=== PATIENT | female | born 1950 | race American Indian/Alaskan Native ===

== ENCOUNTER 2018-12-27 15:51 | Inpatient (IN) | payer MEDICARE ==
--- NOTE | 2018-12-27 19:24 | Emergency Department Report ---
Blank Doc - Documentation Documentation: 68-year-old -Beninese female comes in for left knee swollen redness ning bility to bear weight since Monday. Past medical history of hypertension diabetes with insulin. Labs will be ordered patient be evaluated in the main ER
[2018-12-27 21:04] LABS: BUN/Creatinine Ratio 15; Blood Urea Nitrogen 12 mg/dL (7-17); Calcium 10.8 mg/dL (8.4-10.2); Hemolysis Index 166
[2018-12-27 21:06] LABS: Alanine Aminotransferase 11 units/L (7-56)
[2018-12-27] MEDS ORDERED: DILAUDID IV ONE (21:14)
[2018-12-27] MEDS ORDERED: NACL 0.9% 500 ML 500 ML IV ONE (21:14)
[2018-12-27] MEDS ORDERED: GENTAMICIN 80 MG in NACL 0.9% 100 ML IV ONE (21:14)
[2018-12-27] MEDS ORDERED: VANCOMYCIN 1,500 MG in NACL 0.9% 500 ML 500 ML IV ONE (21:14)
--- NOTE | 2018-12-27 21:18 | Emergency Department Report ---
ED General Adult HPI - General Chief complaint: Extremity Injury, Lower Stated complaint: LT KNEE PAIN Time Seen by Provider: 12/27/18 18:57 Source: patient, family, EMS, RN notes reviewed, old records reviewed Mode of arrival: Wheelchair Limitations: Physical Limitation, Other (patient delirious. Patient is a poor historian. Patient is demented.) - History of Present Illness Initial comments: This is a 68-year-old female. The patient is not known to this provider previously. She typically follows at [facility]. As per her sister, Ms. Khushbu Valencia; [phone], the patient has a history of dementia, possible cognitive delay, arthritis, gout, DVT, and takes xarelto. She does not know when the patient last took her anticoagulation. It may have been today, and they've been yesterday, or the day before. The sister is not certain. The sister brings the patient to the emergency room with a complaint of weakness, history of chest pain, history of wheezing, history of fever at home to 102, and left-sided knee pain, swelling, and inability to bear weight. The patient is demented, somewhat delirious and is a poor historian, and has difficulty describing the nature of her pain, radiation of her pain. She indicates that her knee pain increases with palpation, range of motion, and decreases with rest. No vomiting or diarrhea, sister reports that at home, she is giving pain medication but "I just don't know what else to do." Apparently, the sister has a , Mr. Papito Germain; [phone] who can also be rechecked for questions. Sister endorses that she has power of contract attorney. The sister has giving verbal permission in the emergency room to treat the patient's pain aggressively, and to "do whatever is necessary." I explained to the sister that the patient is delirious, and may not have decision-making capacity secondary to dementia, acute febrile illness and acute delirium. The sister has given verbal permission for chemical sedation and physical restraints if necessary. -: unknown Location: chest, left Radiation: distal Severity scale (0 -10): 10 Quality: other Consistency: other Improves with: other Worsens with: other Associated Symptoms: confusion, chest pain, fever/chills, loss of appetite, weakness - Related Data Allergies Allergy/AdvReac Type Severity Reaction Status Date / Time ampicillin Allergy Seizure Verified 12/27/18 16:12 Tetracyclines Allergy Seizure Verified 12/27/18 16:12 ED Review of Systems ROS: Stated complaint: LT KNEE PAIN Other details as noted in HPI Comment: Unobtainable due to pts medical conditions Constitutional: fever, malaise Respiratory: wheezing Cardiovascular: chest pain Gastrointestinal: denies: nausea, vomiting Musculoskeletal: joint swelling, arthralgia, myalgia Neurological: weakness Psychiatric: anxiety ED Past Medical Hx - Past Medical History Previous Medical History?: Yes Hx Hypertension: Yes Hx Diabetes: Yes Additional medical history: blood clot left leg, gout on left leg, fibroids on right neck - Surgical History Past Surgical History?: Yes Additional Surgical History: tubal ligation - Social History Smoking Status: Never Smoker Substance Use Type: Marijuana ED Physical Exam - General Limitations: Physical Limitation, Other (delirious) General appearance: anxious, obese - Head Head exam: Present: atraumatic, normocephalic - Eye Eye exam: Present: EOMI. Absent: nystagmus - ENT ENT exam: Present: normal exam, normal orophraynx, normal external ear exam - Neck Neck exam: Present: normal inspection, full ROM. Absent: tenderness, meningismus - Respiratory Respiratory exam: Present: normal lung sounds bilaterally. Absent: respiratory distress, wheezes, rales, rhonchi, stridor, chest wall tenderness, accessory muscle use, prolonged expiratory - Cardiovascular Cardiovascular Exam: Present: regular rate, normal rhythm, normal heart sounds. Absent: bradycardia, tachycardia, irregular rhythm - GI/Abdominal GI/Abdominal exam: Present: soft. Absent: distended, tenderness, guarding, rebound, rigid, pulsatile mass - Extremities Exam Extremities exam: Present: tenderness (fused left knee tenderness, and swelling. The patient will not allow me to fully examine the knee.), other (2+ pulses noted in the upper, lower extremities bilaterally. The muscular compartments are soft bilaterally. There is no redness, pus or streaking. Full range of motion in the bilateral upper extremities and right lower extremity). Absent: normal inspection, full ROM - Back Exam Back exam: Present: normal inspection, full ROM. Absent: tenderness, CVA tenderness (R), paraspinal tenderness, vertebral tenderness - Neurological Exam Neurological exam: Present: alert (patient is alert to name and follow some commands.), other (there is no facial droop. The tongue is midline. 5 out of 5 strength in 4 extremities. Sensation is intact to light touch in 4 extremities.) - Psychiatric Psychiatric exam: Present: anxious - Skin Skin exam: Present: warm, intact ED Course Vital Signs 12/27/18 12/27/18 12/27/18 16:12 20:06 20:55 Temperature 99.6 F 98.7 F 100.3 F H Pulse Rate 77 91 H Respiratory 18 22 Rate Blood Pressure 151/88 Blood Pressure 165/82 [Left] O2 Sat by Pulse 99 97 Oximetry 12/27/18 12/27/18 12/27/18 21:00 21:32 22:00 Temperature 102 F H Pulse Rate 73 82 Respiratory 22 25 H Rate Blood Pressure 165/82 148/73 Blood Pressure [Left] O2 Sat by Pulse 95 93 Oximetry 12/27/18 12/28/18 12/28/18 23:00 00:00 00:24 Temperature Pulse Rate 92 H 82 86 Respiratory 14 17 12 Rate Blood Pressure 142/70 142/70 142/70 Blood Pressure [Left] O2 Sat by Pulse 99 Oximetry 12/28/18 12/28/18 02:00 02:04 Temperature 99.8 F H Pulse Rate 99 H Respiratory 15 Rate Blood Pressure 127/75 Blood Pressure [Left] O2 Sat by Pulse 99 Oximetry - Reevaluation(s) Reevaluation #1: 12/27/18 22:10 Differential diagnosis, including but not limited to: Pneumonia, urinary tract infection, septic joint, bacteremia, viremia, pericarditis, myocarditis, pulmonary embolus Assessment and plan: 68-year-old female with baseline delirium, baseline poor cognitive function, as per history from her sister, with left knee pain, swelling, nontraumatic, on systemic anticoagulation; we do not know when her last dose was. The patient will be treated according to the sepsis pathway with appropriate IV fluids, and antibiotics. As per the sister, the patient has anaphylactic marbin ction to ampicillin, penicillins. She cannot further elaborate on this. Doubt meningitis, suspect delirium. We will treat the patient With vancomycin and gentamicin. IV fluids, acetaminophen, pain medication ordered. Since we do not know when the last dose of xarelto was ingested, it is my opi nion that it would not be safe at this point in time to perform a diagnostic arthrocentesis on the left knee. Discussed this with covering orthopedist, Dr. Wilson, who indicates that he can follow in consultation. Please note that the patient did not manifest systemic inflammatory response syndrome criteria, until she was in the emergency room for a prolonged period of time. A rectal temperature was obtained, and demonstrated a temperature of 102 rectally, with a heart rate in the 90s. Thus , patient will be given antibiotics more than 3 hours from presentation, but within 3 hours of manifesting systemic inflammatory response syndrome. We will obtain CT scan of the chest, brain, obtain urinalysis, once her initial diagnostics result, we will admit to the medical service. 12/27/18 22:11 Reevaluation #2: 12/28/18 02:22 CT scan shows left lower lobe infiltrate, no pulmonary embolus, noncontrast CT scan of the brain is negative. Hospital physician was paged to arrange admission. Reevaluation #3: 12/28/18 02:26 Dr. Milan has accepted the patient to the medical service. ED Medical Decision Making - Lab Data Result diagrams: 12/27/18 21:39 12/27/18 20:19 Vital Signs 12/27/18 12/27/18 12/27/18 16:12 20:06 20:55 Temperature 99.6 F 98.7 F 100.3 F H Pulse Rate 77 91 H Respiratory 18 22 Rate Blood Pressure 151/88 Blood Pressure 165/82 [Left] O2 Sat by Pulse 99 97 Oximetry 12/27/18 21:32 Temperature 102 F H Pulse Rate Respiratory Rate Blood Pressure Blood Pressure [Left] O2 Sat by Pulse Oximetry Lab Results 12/27/18 12/27/18 12/27/18 Range/Units 20:19 21:39 21:39 WBC 7.3 (4.5-11.0) K/mm3 RBC 3.97 (3.65-5.03) M/mm3 Hgb 10.8 (10.1-14.3) gm/dl Hct 33.7 (30.3-42.9) % MCV 85 (79-97) fl MCH 27 L (28-32) pg MCHC 32 (30-34) % RDW 13.5 (13.2-15.2) % Plt Count 210 (140-440) K/mm3 Lymph % (Auto) 14.4 (13.4-35.0) % [place] % (Auto) 7.6 H (0.0-7.3) % Eos % (Auto) 0.1 (0.0-4.3) % Baso % (Auto) 0.6 (0.0-1.8) % Lymph # 1.1 L (1.2-5.4) K/mm3 [place] # 0.6 (0.0-0.8) K/mm3 Eos # 0.0 (0.0-0.4) K/mm3 Baso # 0.0 (0.0-0.1) K/mm3 Seg Neutrophils % 77.3 H (40.0-70.0) % Seg Neutrophils # 5.7 (1.8-7.7) K/mm3 Sodium 138 (137-145) mmol/L Potassium 5.1 H (3.6-5.0) mmol/L Chloride 98.6 (98-107) mmol/L Carbon Dioxide 22 (22-30) mmol/L Anion Gap 23 mmol/L BUN 12 (7-17) mg/dL Creatinine 0.8 (0.7-1.2) mg/dL Estimated GFR > 60 ml/min BUN/Creatinine Ratio 15 % Glucose 217 H (65-100) mg/dL Lactic Acid 1.00 (0.7-2.0) mmol/L Calcium 10.8 H (8.4-10.2) mg/dL Total Bilirubin 0.50 (0.1-1.2) mg/dL AST 23 (5-40) units/L ALT 11 (7-56) units/L Alkaline Phosphatase 104 (35-129) units/L Troponin T < 0.010 (0.00-0.029) ng/mL Total Protein 7.1 (6.3-8.2) g/dL Albumin 4.0 (3.9-5) g/dL Albumin/Globulin Ratio 1.3 % - EKG Data -: EKG Interpreted by Me EKG shows normal: sinus rhythm Rate: normal - EKG Data When compared to previous EKG there are: previous EKG unavailable 12/27/18 22:14 Low voltage, sinus, 82 bpm, not consistent with ST elevation myocardial infarction, poor R progression, no prior EKG is available for comparison - Radiology Data Radiology results: report reviewed, image reviewed interpreted by me: X-ray of the chest limited by rotated portable technique, right lower lobe atelectasis, calcified aortic knob, questionable left lower lobe pneumonia X-ray of the left knee demonstrates no fracture, severe DJD. Critical care attestation.: If time is entered above; I have spent that time in minutes in the direct care of this critically ill patient, excluding procedure time. ED Disposition Clinical Impression: SIRS (systemic inflammatory response syndrome), Left knee pain, Chest pain Disposition: OP ADMIT IP TO THIS HOSP Is pt being admited?: Yes Condition: Fair Instructions: Chest Pain (ED) [facility] [Primary Care Provider] - 3-5 Days
[2018-12-27] MEDS ORDERED: DILAUDID ONE (21:19)
--- NOTE | 2018-12-27 21:24 | XRay Report ---
FINAL REPORT PROCEDURE: XR KNEE 1-2V LT TECHNIQUE: RIGHT knee radiographs, AP and lateral views. CPT 57288 HISTORY: left knee swollen and redness and tender COMPARISON: No prior studies are available for comparison. FINDINGS: Limited study due to suboptimal positioning Fracture (s) and/or Dislocation(s): None . Alignment: Normal . Joint space(s): There is severe degree narrowing of the medial tibiofemoral compartment with the oste ophyte formation. Soft tissues: Normal . Bone mineralization: Normal . Foreign bodies: None . IMPRESSION: Severe degree osteoarthritis.
[2018-12-27] MEDS ORDERED: NACL 0.9% 1000 ML IV ONE (21:32)
[2018-12-27] MEDS: TYLENOL PO PRN (21:50)
[2018-12-27] MEDS ORDERED: SUBLIMAZE IV ONE (21:58)
[2018-12-27] MEDS ORDERED: VANCOMYCIN 2,000 MG in NACL 0.9% 500 ML 500 ML IV ONE (22:00)
[2018-12-27] MEDS ORDERED: GENTAMICIN/NS 80 MG/100 ML 100 ML IV ONE (22:00)
[2018-12-27 22:02] LABS: Basophils % (Auto) 0.6 % (0.0-1.8); Eosinophils % (Auto) 0.1 % (0.0-4.3); Hematocrit 33.7 % (30.3-42.9); Hemoglobin 10.8 gm/dl (10.1-14.3); Lymphocytes # (Auto) 1.1 K/mm3 (1.2-5.4); Lymphocytes % (Auto) 14.4 % (13.4-35.0); Mean Corpuscular HGB Conc 32 % (30-34); Mean Corpuscular Volume 85 fl (79-97); Monocytes # (Auto) 0.6 K/mm3 (0.0-0.8); Monocytes % (Auto) 7.6 % (0.0-7.3); Platelet Count 210 K/mm3 (140-440); Red Blood Count 3.97 M/mm3 (3.65-5.03); Red Cell Distribution Width 13.5 % (13.2-15.2)
[2018-12-27 22:14] LABS: INR 1.03 (0.87-1.13)
[2018-12-27 22:15] LABS: Partial Thromboplastin Time 25.6 Sec. (24.2-36.6)
--- NOTE | 2018-12-27 22:16 | XRay Report ---
FINAL REPORT PROCEDURE: XR CHEST 1V AP TECHNIQUE: Chest radiograph anteroposterior view. CPT 64373 HISTORY: cp COMPARISON: No prior studies are available for comparison. FINDINGS: Heart: Normal. Mediastinum/Vessels: Normal. Lungs/Pleural space: An inhomogeneous density is noted in the left lower lung. Right lung and bilater al pleural spaces are clear.. Bony thorax: No acute osseous abnormality. Life support devices: None. IMPRESSION: An inhomogeneous density in the left lower lung most likely represents pneumonia. Differential diagno sis includes atelectatic change. A two view chest study is recommended whenever the patient's conditi on permits..
[2018-12-27 22:36] LABS: Erythrocyte Sedimentation Rate 66 mm/Hr (0-20)
[2018-12-27] MEDS ORDERED: HALDOL IM ONE ×2 (23:30→23:31)
[2018-12-28] MEDS ORDERED: ATIVAN IV ONE (00:26)
--- NOTE | 2018-12-28 01:34 | Cat Scan Report ---
FINAL REPORT PROCEDURE: CT HEAD/BRAIN WO CON TECHNIQUE: Computerized tomography of the head was performed without contrast material. HISTORY: fever delerium on xarelto COMPARISON: No prior studies are available for comparison. FINDINGS: Skull and scalp: Normal. Paranasal sinuses: Normal. Ventricles and subarachnoid spaces: The ventricles are enlarged globally. Normal pressure hydrocephal us is possible.. Cerebrum: No evidence of hemorrhage, acute infarction or mass. Mild atrophy and slight periventricula r deep white matter changes are noted.. Cerebellum and brainstem: No evidence of hemorrhage, acute infarction or mass. Vasculature: Normal. Comments: None. IMPRESSION: There is no evidence of an acute intracranial process. Moderate atrophy and slight periventricular de ep white matter changes are noted. There is enlargement of the ventricles globally, normal pressure h ydrocephalus is possible.
--- NOTE | 2018-12-28 01:59 | Cat Scan Report ---
FINAL REPORT PROCEDURE: CT ANGIO CHEST TECHNIQUE: Computerized tomographic angiography of the chest was performed after the IV injection of iodinated nonionic contrast including image processing. The image data was postprocessed using 2-dim ensional multiplanar reformatted (MPR) and 3-dimensional (MIP and/or volume rendered) techniques. HISTORY: fever cp COMPARISON: No prior studies are available for comparison. FINDINGS: Heart and pericardium: Normal. Thoracic aorta: Normal. Pulmonary vasculature: There is no evidence pulmonary arterial emboli. Lymph nodes: No enlarged thoracic lymph nodes. Lungs: Slight infiltrate in the left lower lung is identified. Central airway is patent. No effusion or pneumothorax.. Pleural space: No effusion, thickening, or pneumothorax. Musculoskeletal structures: Moderate degenerative changes of the spine.. Upper abdominal structures: There is fatty infiltration of the liver. There has been previous cholecy stectomy.. IMPRESSION: Slight left lower lung infiltrate. There is no evidence of pulmonary arterial emboli.
[2018-12-28] MEDS ORDERED: ZITHROMAX PO ONE (02:26)
[2018-12-28] MEDS ORDERED: BABY ASPIRIN PO ONE (02:27)
[2018-12-28] MEDS ORDERED: TYLENOL PO PRN (06:02)
[2018-12-28] MEDS ORDERED: SODIUM CHLORIDE FLUSH SYRINGE 10 ML IV PRN (06:02)
--- NOTE | 2018-12-28 06:05 | History and Physical Report ---
History of Present Illness Date of examination: 12/28/18 Date of admission: 12/28/18 02:50 History of present illness: 68 year old woman with a history of dementia, diabetes, gout, DVTcomes to the emergency room with complaints of cough, fever, chills shortness of breath and feel like something is in her throat since last week. Also complaining of left knee pain, swelling and difficulty ambulating. Very difficult to obtain from the patient Review of systems Constitutional: no weight loss, chills, fever Ears, eyes, nose, mouth and throat: no nasal congestion, no nasal discharge, no sinus pressure, no vision change, no red eye. Neck: No neck pain or rigidity. Cardiovascular: no palpitations, chest pain Respiratory: + cough, shortness of breath Gastrointestinal: no hematochezia, abdominal pain Genitourinary : no frequency , no hematuria Musculoskeletal: no joint swelling or muscle ache Integumentary: no rash, no pruritis Neurological: no parathesias, no focal weakness Endocrine: no cold or heat intolerance, no polyuria or polydipsia Hematologic/Lymphatic: no easy bruising, no easy bleeding, no gland swelling Allergic/Immunologic: no urticaria, no angioedema. PAST MEDICAL HISTORY: dementia, diabetes, gout, DVT PAST SURGICAL HISTORY: Tubal ligation SOCIAL HISTORY: Denies alcohol, drugs, tobacco FAMILY HISTORY: Hypertension Medications and Allergies Allergies Allergy/AdvReac Type Severity Reaction Status Date / Time ampicillin Allergy Seizure Verified 12/27/18 16:12 Tetracyclines Allergy Seizure Verified 12/27/18 16:12 Active Meds: Active Medications Acetaminophen (Tylenol) 650 mg PO Q6H PRN PRN Reason: Pain, Mild (1-3) Last Admin: 12/27/18 21:50 Dose: 650 mg Documented by: Acetaminophen (Tylenol) 650 mg PO Q4H PRN PRN Reason: Pain MILD(1-3)/Fever >100.5/KILPATRICK Exam - Physical Exam Narrative exam: General Apperance: The patient lying in bed, breathing comfortable HEENT: Normocephalic, atraumatic. Pupils equally round and reactive to light, EOMI, no sclericterus or JVD or thyromegaly or nodule. , no carotid bruit, m ucous membranes moist, no exudate or erythema Heart: S1-S2, regular is rhythm Lungs: Crackles, breathing comfortable Abdomen: Positive bowel sounds, soft, nontender, nondistended, no organomegaly Extremities: No edema cyanosis clubbing Skin: no rash, nodule, warm and dry Neuro: cranial nerves 2-12 intact, speech is fluent, motor/sensory intact - Constitutional Vitals: Temp Pulse Resp BP Pulse Ox 99.8 F H 75 23 112/67 98 12/28/18 02:04 12/28/18 03:00 12/28/18 03:00 12/28/18 03:00 12/28/18 03:00 Results - Labs CBC & Chem 7: 12/27/18 21:39 12/27/18 20:19 Labs: Abnormal lab results 12/27/18 12/27/18 12/27/18 Range/Units 20:19 21:39 21:39 MCH 27 L (28-32) pg [place] % (Auto) 7.6 H (0.0-7.3) % Lymph # 1.1 L (1.2-5.4) K/mm3 Seg Neutrophils % 77.3 H (40.0-70.0) % D-Dimer 1862.54 H (0-234) ng/mlDDU Potassium 5.1 H (3.6-5.0) mmol/L Glucose 217 H (65-100) mg/dL Calcium 10.8 H (8.4-10.2) mg/dL - Imaging and Cardiology EKG: image reviewed Chest x-ray: report reviewed CT scan - chest: report reviewed CT Scan - head: report reviewed Assessment and Plan Assessment Community-acquired pneumonia Left knee pain and swelling Diabetes dementia gout DVT Plan Admit to medicine Start IV Levaquin, follow cultures Orthopedic is consulted to see the patient Check fingersticks and initiate insulin sliding scale DVT prophylaxis
[2018-12-28] MEDS ORDERED: LOVENOX SUB-Q SCH (10:00)
[2018-12-28] MEDS: MORPHINE IV PRN ×3 (10:36→21:06)
[2018-12-28] MEDS: ZOFRAN IV PRN ×2 (10:37→18:01)
[2018-12-28] MEDS: LEVAQUIN 750MG/150ML 750 MG/150 ML BAG IV SCH (10:37)
[2018-12-28] MEDS: SODIUM CHLORIDE FLUSH SYRINGE 10 ML IV SCH ×2 (10:38→21:10)
[2018-12-28] MEDS ORDERED: MORPHINE IV ONE (12:47)
--- NOTE | 2018-12-28 13:13 | Consultation ---
History of Present Illness - HPI Consult date: 12/28/18 Consult reason: joint pain History of present illness: 68 y/o female with c/o left knee pain and swelling, long history of previous knee problems, DJD... Medications and Allergies Allergies Allergy/AdvReac Type Severity Reaction Status Date / Time ampicillin Allergy Seizure Verified 12/27/18 16:12 Tetracyclines Allergy Seizure Verified 12/27/18 16:12 Active Meds: Active Medications Acetaminophen (Tylenol) 650 mg PO Q6H PRN PRN Reason: Pain, Mild (1-3) Last Admin: 12/27/18 21:50 Dose: 650 mg Documented by: Acetaminophen (Tylenol) 650 mg PO Q4H PRN PRN Reason: Pain MILD(1-3)/Fever >100.5/KILPATRICK Levofloxacin/Dextrose (Levaquin 750mg/150ml) 750 mg in 150 mls @ 100 mls/hr IV Q24HR CAROLYNN; Protocol Last Admin: 12/28/18 10:37 Dose: 100 mls/hr Documented by: Morphine Sulfate (Morphine) 2 mg IV Q4H PRN PRN Reason: Pain, Moderate (4-6) Last Admin: 12/28/18 10:36 Dose: 2 mg Documented by: Morphine Sulfate (Morphine) 2 mg IV ONCE ONE Stop: 12/28/18 12:48 Ondansetron HCl (Zofran) 4 mg IV Q8H PRN PRN Reason: Nausea And Vomiting Last Admin: 12/28/18 10:37 Dose: 4 mg Documented by: Sodium Chloride (Sodium Chloride Flush Syringe 10 Ml) 10 ml IV BID CAROLYNN Last Admin: 12/28/18 10:38 Dose: 10 ml Documented by: Sodium Chloride (Sodium Chloride Flush Syringe 10 Ml) 10 ml IV PRN PRN PRN Reason: LINE FLUSH Physical Examination - Physical exam Narrative exam: left knee - 1 + effusion, no erythema, slightly warm to touch, passive ROM ok, Assessment and Plan severe osteoarthritis left knee discussed situation with the patient and her brother, recommend total knee replacement... may discharge to home when medical condition improve then f/u in office for scheduling...
[2018-12-28] MEDS: HumaLOG SUB-Q SCH ×3 (13:35→21:26)
--- NOTE | 2018-12-28 17:09 | Progress Note ---
Assessment and Plan Assessment and plan: Acute LLL Pneumonia continue abx monitor Severe OA of left knee with acute pain ortho on board optimal pain control Mild Hyperkalemia 2/2 dehydration repeat k in am continue IVF hydration DM II continue SSI and other insulin therapy HTN continue meds Acute on chronic physical debility 2/2 left knee issues fall precautions at all times Dehydration continue IVF hydration Per brother PT DOES NOT EAT PORK OR DAIRY RN has notified the kitchen Disposition Plan: per hospital course Total Time Spent with Patient (Minutes): more than 50 mins spent( time spent in review of chart, d/w pt, and RN,etc History Interval history: HPI 68 year old woman with a history of dementia, diabetes, gout, DVTcomes to the emergency room with complaints of cough, fever, chills shortness of breath and feel like something is in her throat since last week. Also complaining of left knee pain, swelling and difficulty ambulating. Very difficult to obtain from the patient Subjective: Pt seen and exam by bedside. Pt c/o severe left knee pain 8/10, worsened by movement, Pt informed me that she fell down at home 3 days ago. Later met brother by bedside, who is also the POA. Brother appeared visibly upset, and stated that no one spoke to him last night before admitting the pt to the hospital. He went on to tell me that he makes medical decisions for the patient and that the staff from yesterday should not have spoken to pt's daughter for any form of information. Per brother, pt informed him that she did not want to be admitted to this hospital. But on review of pt's chart, and H&P documentation, information could not be obtained from the pt because she was delirious. Pt admitted not to remember the events of yesterday . I had to call the RN to the room because, pt's brother apart from appearing visibly upset, also raised his voice at me. I wanted the RN to be a witness to my conversation with the brother. He kept repeating himself about the events of last night. I respectfully informed the brother that I was not present last night during pt's admission, because the brother kept pointing at me as the admitting doctor. Brother also claimed that I fabricated his responses to my questions. I tried as much as possible to have a decent discussion with pt's brother, but unfortunately he kept referring to last night. He then informed me that he can call his laywer and tell his campaign assistant what happened last night. I informed him that he and other people have the right to call or get a campaign assistant to investigate the events of last night, and the brother then said, "let bygohal be bygone". spent more than 20 mins discussing above with pt's brother. Hospitalist Physical - Constitutional Vitals: Temp Pulse Resp BP Pulse Ox 98.9 F 105 H 20 141/53 97 12/28/18 05:20 12/28/18 06:00 12/28/18 05:20 12/28/18 05:20 12/28/18 09:08 General appearance: Present: mild distress (due to knee pain), other (chronically ill appearing) - EENT Eyes: Present: PERRL, EOM intact ENT: hearing intact, clear oral mucosa - Neck Neck: Present: supple, normal ROM - Respiratory Respiratory: bilateral: CTA, negative: diminished, rales, rhonchi, wheezing - Cardiovascular Rhythm: regular (slight tachy 2/2 pain) Heart Sounds: Present: S1 & S2 - Extremities Extremities: pulses intact, normal color Extremity abnormal: tenderness (left knee with knee effusion) - Abdominal General gastrointestinal: soft, non-tender, non-distended, normal bowel sounds - Integumentary Integumentary: Present: clear, warm, dry - Psychiatric Psychiatric: appropriate mood/affect, cooperative - Neurologic Neurologic: CNII-XII intact, moves all extremities (limited by pain of the left knee) - Allied Health Allied health notes reviewed: nursing, social work, case management Results - Labs CBC & Chem 7: 12/27/18 21:39 12/27/18 20:19 Labs: Laboratory Last Values WBC 7.3 K/mm3 (4.5-11.0) 12/27/18 21:39 RBC 3.97 M/mm3 (3.65-5.03) 12/27/18 21:39 Hgb 10.8 gm/dl (10.1-14.3) 12/27/18 21:39 Hct 33.7 % (30.3-42.9) 12/27/18 21:39 MCV 85 fl (79-97) 12/27/18 21:39 MCH 27 pg (28-32) L 12/27/18 21:39 MCHC 32 % (30-34) 12/27/18 21:39 RDW 13.5 % (13.2-15.2) 12/27/18 21:39 Plt Count 210 K/mm3 (140-440) 12/27/18 21:39 Lymph % (Auto) 14.4 % (13.4-35.0) 12/27/18 21:39 [place] % (Auto) 7.6 % (0.0-7.3) H 12/27/18 21:39 Eos % (Auto) 0.1 % (0.0-4.3) 12/27/18 21:39 Baso % (Auto) 0.6 % (0.0-1.8) 12/27/18 21:39 Lymph # 1.1 K/mm3 (1.2-5.4) L 12/27/18 21:39 [place] # 0.6 K/mm3 (0.0-0.8) 12/27/18 21:39 Eos # 0.0 K/mm3 (0.0-0.4) 12/27/18 21:39 Baso # 0.0 K/mm3 (0.0-0.1) 12/27/18 21:39 Seg Neutrophils % 77.3 % (40.0-70.0) H 12/27/18 21:39 Seg Neutrophils # 5.7 K/mm3 (1.8-7.7) 12/27/18 21:39 ESR 66 mm/Hr (0-20) 12/27/18 21:39 PT 14.1 Sec. (12.2-14.9) 12/27/18 21:39 INR 1.03 (0.87-1.13) 12/27/18 21:39 APTT 25.6 Sec. (24.2-36.6) 12/27/18 21:39 D-Dimer 1862.54 ng/mlDDU (0-234) H 12/27/18 21:39 Sodium 138 mmol/L (137-145) 12/27/18 20:19 Potassium 5.1 mmol/L (3.6-5.0) H 12/27/18 20:19 Chloride 98.6 mmol/L (98-107) 02/14/19 20:19 Carbon Dioxide 22 mmol/L (22-30) 12/27/18 20:19 Anion Gap 23 mmol/L 12/27/18 20:19 BUN 12 mg/dL (7-17) 12/27/18 20:19 Creatinine 0.8 mg/dL (0.7-1.2) 12/27/18 20:19 Estimated GFR > 60 ml/min 12/27/18 20:19 BUN/Creatinine Ratio 15 % 12/27/18 20:19 Glucose 217 mg/dL (65-100) H 12/27/18 20:19 POC Glucose 217 (70-105) H 12/28/18 13:09 Lactic Acid 0.90 mmol/L (0.7-2.0) 12/28/18 04:22 Calcium 10.8 mg/dL (8.4-10.2) H 12/27/18 20:19 Total Bilirubin 0.50 mg/dL (0.1-1.2) 12/27/18 20:19 AST 23 units/L (5-40) 12/27/18 20:19 ALT 11 units/L (7-56) 12/27/18 20:19 Alkaline Phosphatase 104 units/L (35-129) 12/27/18 20:19 Troponin T < 0.010 ng/mL (0.00-0.029) 12/27/18 20:19 Total Protein 7.1 g/dL (6.3-8.2) 12/27/18 20:19 Albumin 4.0 g/dL (3.9-5) 12/27/18 20:19 Albumin/Globulin Ratio 1.3 % 12/27/18 20:19 - Imaging and Cardiology Chest x-ray: report reviewed CT scan - chest: report reviewed (reveiwed this with pt's brother.) CT Scan - head: report reviewed
[2018-12-29] MEDS: SODIUM CHLORIDE FLUSH SYRINGE 10 ML IV SCH ×2 (14:58→21:22)
[2018-12-29] MEDS: LEVAQUIN 750MG/150ML 750 MG/150 ML BAG IV SCH (14:58)
[2018-12-29 15:04] LABS: Basophils % (Auto) 0.3 % (0.0-1.8); Hematocrit 34.5 % (30.3-42.9); Lymphocytes # (Auto) 1.2 K/mm3 (1.2-5.4); Lymphocytes % (Auto) 14.6 % (13.4-35.0); Mean Corpuscular HGB Conc 32 % (30-34); Mean Corpuscular Volume 85 fl (79-97); Monocytes # (Auto) 0.9 K/mm3 (0.0-0.8); Monocytes % (Auto) 11.1 % (0.0-7.3); Platelet Count 219 K/mm3 (140-440); Red Blood Count 4.04 M/mm3 (3.65-5.03); Red Cell Distribution Width 13.4 % (13.2-15.2)
[2018-12-29] MEDS: HumaLOG SUB-Q SCH ×4 (15:15→21:19)
[2018-12-29] MEDS: MORPHINE IV PRN ×2 (15:17→21:19)
[2018-12-29 15:20] LABS: BUN/Creatinine Ratio 11; Blood Urea Nitrogen 10 mg/dL (7-17); Calcium 10.8 mg/dL (8.4-10.2); Hemolysis Index 0
--- NOTE | 2018-12-29 15:48 | Progress Note ---
Assessment and Plan Acute LLL Pneumonia continue abx Blood culture [place] with sulfa monitor Elevated d-dimer CT anginal chest was negative for pulmonary embolism However showed left lobe infiltrates Severe OA of left knee with acute pain ortho on board optimal pain control Mild Hyperkalemia corrected repeat k in am continue IVF hydration DM II Obtain A1c continue SSI and other insulin therapy HTN continue meds Acute on chronic physical debility 2/2 left knee issues fall precautions at all times DVT prophylaxis: Lovenox Disposition discharged patient home when clinically stable. Subjective Date of service: 12/29/18 Principal diagnosis: pneumonia, diabetes mellitus, hypertension, hyperkalemia. Interval history: Patient seen and examined. Lying quietly in bed. In no apparent distress. Afebrile. No overnight event reported to me. Objective - Exam Narrative Exam: Constitutional: Well-nourished well-developed. In no distress Head: Normocephalic atraumatic Eyes: Pupils are equal round and reactive to light Nose: No enlarged turbinates, no septal deviation. Mouth: Moist mucous membranes. Neck: Supple no thyromegaly. No bruit. No JVD Heart: Regular rate and rhythm, S1-S2 normal. No rubs murmurs or gallop Lungs: Clear to auscultation bilaterally. no rales or rhonchi Abdomen: Soft, nontender. Bowel sound are present. Extremities: No edema, no cyanosis, no clubbing. Neuro: Alert oriented Oriented x3. No focal sensory or motor deficit. Skin: No rashes or hyperpigmented spots Musculoskeletal system: No joint pain or swelling Hematological: No petechia or subcutanous hemorrhages. Immunological: No multiple septic spots on the skin Lymphatic: No generalized lymphadenopathy Psychiatry: Euthymic. Calm. - Constitutional Vitals: Vital Signs - 12hr 12/29/18 12/29/18 12/29/18 09:46 11:38 12:03 Pulse Rate 93 H 87 Respiratory Rate Blood Pressure 147/70 154/74 O2 Sat by Pulse 95 99 86 Oximetry 12/29/18 15:17 Pulse Rate Respiratory 20 Rate Blood Pressure O2 Sat by Pulse Oximetry - Labs CBC & Chem 7: 12/29/18 14:45 12/29/18 14:45 Labs: Abnormal lab results 12/28/18 12/28/18 12/29/18 Range/Units 17:47 21:18 12:06 MCH (28-32) pg [place] % (Auto) (0.0-7.3) % [place] # (0.0-0.8) K/mm3 Seg Neutrophils % (40.0-70.0) % Chloride (98-107) mmol/L Glucose (65-100) mg/dL POC Glucose 204 H 271 H 238 H (70-105) Calcium (8.4-10.2) mg/dL 12/29/18 12/29/18 Range/Units 14:45 14:45 MCH 27 L (28-32) pg [place] % (Auto) 11.1 H (0.0-7.3) % [place] # 0.9 H (0.0-0.8) K/mm3 Seg Neutrophils % 74.0 H (40.0-70.0) % Chloride 96.0 L (98-107) mmol/L Glucose 314 H (65-100) mg/dL POC Glucose (70-105) Calcium 10.8 H (8.4-10.2) mg/dL
[2018-12-29] MEDS: ZOFRAN IV PRN (22:20)
[2018-12-29] MEDS: TYLENOL PO PRN (22:20)
[2018-12-30] MEDS: HumaLOG SUB-Q SCH ×4 (08:14→22:00)
[2018-12-30] MEDS: LEVAQUIN 750MG/150ML 750 MG/150 ML BAG IV SCH (10:34)
[2018-12-30] MEDS: SODIUM CHLORIDE FLUSH SYRINGE 10 ML IV SCH ×2 (10:34→22:00)
[2018-12-30] MEDS: MORPHINE IV PRN ×2 (11:33→15:48)
[2018-12-30] MEDS: TYLENOL PO PRN (13:10)
[2018-12-30 15:07] LABS: Hematocrit 32.7 % (30.3-42.9); Hemoglobin 10.8 gm/dl (10.1-14.3); Mean Corpuscular HGB Conc 33 % (30-34); Mean Corpuscular Volume 85 fl (79-97); Platelet Count 226 K/mm3 (140-440); Red Blood Count 3.86 M/mm3 (3.65-5.03); Red Cell Distribution Width 13.8 % (13.2-15.2)
[2018-12-30 15:16] LABS: Albumin 2.7 g/dL (3.9-5); BUN/Creatinine Ratio 12; Blood Urea Nitrogen 12 mg/dL (7-17); Calcium 10.5 mg/dL (8.4-10.2); Hemolysis Index 153
[2018-12-30 15:26] LABS: Basophils % (Auto) 0.6 % (0.0-1.8); Eosinophils % (Auto) 0.1 % (0.0-4.3); Lymphocytes % (Auto) 16.5 % (13.4-35.0); Monocytes % (Auto) 9.5 % (0.0-7.3)
[2018-12-30 15:27] LABS: Lymphocytes # (Auto) 1.2 K/mm3 (1.2-5.4); Monocytes # (Auto) 0.7 K/mm3 (0.0-0.8)
[2018-12-30 16:22] LABS: Alanine Aminotransferase 26 units/L (7-56)
--- NOTE | 2018-12-30 17:29 | Progress Note ---
Assessment and Plan Acute LLL Pneumonia continue abx Blood culture no growth to date Elevated d-dimer CT anginal chest was negative for pulmonary embolism However showed left lobe infiltrates Severe OA of left knee with acute pain ortho on board optimal pain control Mild Hyperkalemia corrected repeat k in am continue IVF hydration DM II continue SSI and other insulin therapy HTN continue meds Acute on chronic physical debility 2/2 left knee issues fall precautions at all times DVT prophylaxis: Lovenox Disposition:discharged patient home vs SNF when clinically stable. Subjective Date of service: 12/30/18 Principal diagnosis: pneumonia, diabetes mellitus, hypertension, hyperkalemia. Interval history: Patient seen and examined. Lying quietly in bed. Confused. Afebrile. No overnight event reported to me. Objective - Exam Narrative Exam: Constitutional:Well-nourished well-developed. In no distress Head: Normocephalic atraumatic Eyes: Pupils are equal round and reactive to light Nose: No enlarged turbinates, no septal deviation. Mouth: Moist mucous membranes. Neck: Supple no thyromegaly. No bruit. No JVD Heart: Regular rate and rhythm, S1-S2 normal. No rubs murmurs or gallop Lungs: Clear to auscultation bilaterally. no rales or rhonchi Abdomen: Soft, nontender. Bowel sound are present. Extremities: No edema, no cyanosis, no clubbing. Neuro: Alert oriented Oriented x3. No focal sensory or motor deficit. Skin: No rashes or hyperpigmented spots Musculoskeletal system: No joint pain or swelling Hematological: No petechia or subcutanous hemorrhages. Immunological: No multiple septic spots on the skin Lymphatic: No generalized lymphadenopathy Psychiatry: Euthymic. Calm. - Constitutional Vitals: Vital Signs - 12hr 12/30/18 14:00 Temperature 97.6 F Pulse Rate 88 Respiratory 18 Rate Blood Pressure 155/84 [Left] - Labs CBC & Chem 7: 12/30/18 14:46 12/30/18 14:46 Labs: Abnormal lab results 12/29/18 12/29/18 12/30/18 Range/Units 16:54 21:08 12:36 [place] % (Auto) (0.0-7.3) % Seg Neutrophils % (40.0-70.0) % Sodium (137-145) mmol/L Chloride (98-107) mmol/L Glucose (65-100) mg/dL POC Glucose 298 H 200 H 258 H (70-105) Calcium (8.4-10.2) mg/dL Albumin (3.9-5) g/dL 12/30/18 12/30/18 12/30/18 Range/Units 14:46 14:46 16:14 [place] % (Auto) 9.5 H (0.0-7.3) % Seg Neutrophils % 73.3 H (40.0-70.0) % Sodium 135 L (137-145) mmol/L Chloride 97.8 L (98-107) mmol/L Glucose 232 H (65-100) mg/dL POC Glucose 239 H (70-105) Calcium 10.5 H (8.4-10.2) mg/dL Albumin 2.7 L (3.9-5) g/dL
[2018-12-30 20:08] VITALS: BP 151/112
[2018-12-30] MEDS ORDERED: GEODON IM ONE (21:51)
[2018-12-30] MEDS ORDERED: HALDOL IM ONE (23:57)
[2018-12-31 02:12] LABS: Chol/HDL Ratio 3.94 %
[2018-12-31] MEDS: HumaLOG SUB-Q SCH ×3 (05:54→13:03)
[2018-12-31 06:53] LABS: Basophils % (Auto) 0.3 % (0.0-1.8); Eosinophils % (Auto) 0.1 % (0.0-4.3); Hematocrit 31.8 % (30.3-42.9); Hemoglobin 10.2 gm/dl (10.1-14.3); Lymphocytes # (Auto) 1.3 K/mm3 (1.2-5.4); Lymphocytes % (Auto) 17.6 % (13.4-35.0); Mean Corpuscular HGB Conc 32 % (30-34); Mean Corpuscular Volume 84 fl (79-97); Monocytes # (Auto) 0.6 K/mm3 (0.0-0.8); Monocytes % (Auto) 8.7 % (0.0-7.3); Platelet Count 248 K/mm3 (140-440); Red Blood Count 3.78 M/mm3 (3.65-5.03); Red Cell Distribution Width 13.6 % (13.2-15.2)
[2018-12-31 07:14] LABS: Alanine Aminotransferase 21 units/L (7-56); Albumin 3.1 g/dL (3.9-5); BUN/Creatinine Ratio 14; Blood Urea Nitrogen 13 mg/dL (7-17); Calcium 10.7 mg/dL (8.4-10.2); Hemolysis Index 4
[2018-12-31] MEDS: LEVAQUIN 750MG/150ML 750 MG/150 ML BAG IV SCH (10:48)
[2018-12-31] MEDS: SODIUM CHLORIDE FLUSH SYRINGE 10 ML IV SCH (10:49)
[2018-12-31] MEDS: MORPHINE IV PRN (13:04)
--- NOTE | 2018-12-31 13:43 | Discharge Summary ---
Providers - Providers Date of Admission: 12/28/18 02:50 Date of discharge: 12/31/18 Attending physician: BURT MONTENEGRO 12/27/18 21:17 Consult to Physician [CONS] Urgent Comment: Consulting Provider: GAEL ROJAS Physician Instructions: Reason For Exam: left knee pain Primary care physician: [facility] JORGE ALEJANDRO MD Hospitalization Reason for admission: left lobar pneumonia, hyperkalemia Condition: Fair Pertinent studies: CTA of the chest shows no evidence of pulmonary embolism, however left lower lobe infiltrates identified. CT of the head showed no acute intracranial process. History of the left knee showed degenerative changes. Procedures: none Hospital course: 68 year old woman with a history of dementia, diabetes, gout, DVTcomes to the emergency room with complaints of cough, fever, chills shortness of breath and feel like something is in her throat since last week. Also complaining of left knee pain, swelling and difficulty ambulating. History was Very difficult to obtain from the patient. Patient patient was commenced on IV antibiotics. Patient was too confused from her baseline dementia. Cough, fever and chills resolved. She is therefore being discharged to follow-up with her primary care physician. Discussed with patient's brother who has the Power of [employer] Boat [employer]. Disposition: DC-01 TO HOME OR SELFCARE Time spent for discharge: 40 min - Discharge Diagnoses (1) Pneumonia Status: Acute (2) Chest pain Status: Acute (3) SIRS (systemic inflammatory response syndrome) Status: Acute Core Measure Documentation - Palliative Care Palliative Care/ Comfort Measures: Not Applicable - Core Measures Any of the following diagnoses?: none Exam - Physical Exam Narrative exam: Constitutional: Pleasantly confused Well-nourished well-developed. In no distress Head: Normocephalic atraumatic Eyes: Pupils are equal round and reactive to light Nose: No enlarged turbinates, no septal deviation. Mouth: Moist mucous membranes. Neck: Supple no thyromegaly. No bruit. No JVD Heart: Regular rate and rhythm, S1-S2 normal. No rubs murmurs or gallop Lungs: Clear to auscultation bilaterally. no rales or rhonchi Abdomen: Soft, nontender. Bowel sound are present. Extremities: No edema, no cyanosis, no clubbing. Neuro: Alert oriented Oriented x3. No focal sensory or motor deficit. Skin: No rashes or hyperpigmented spots Musculoskeletal system: No joint pain or swelling Hematological: No petechia or subcutanous hemorrhages. Immunological: No multiple septic spots on the skin Lymphatic: No generalized lymphadenopathy Psychiatry: Euthymic. Calm. - Constitutional Vitals: Temp Pulse Resp BP Pulse Ox 98.3 F 107 H 18 151/112 96 12/30/18 20:07 12/30/18 20:07 12/30/18 20:07 12/30/18 20:07 12/30/18 20:07 Plan Activity: advance as tolerated Weight Bearing Status: Weight Bear as Tolerated Diet: regular [facility] - 3-5 Days Prescriptions: Benzonatate [Tessalon [place]] 100 mg PO TID #60 capsule levoFLOXacin [Levaquin TAB] 750 mg PO Q24HR #3 tablet
[2019-01-01] MEDS ORDERED: LEVAQUIN PO SCH (10:00)
== END 2018-12-31 16:50 | disposition home or self-care (01) | DRG 193 ==
LOC: ED 15:51 → 4A 12-28 02:50
PROVIDERS: ADMIT Internal Medicine; ATTEND Family Medicine
DX: J18.1 Lobar pneumonia, unspecified organism (principal); E43 Unspecified severe protein-calorie malnutrition; R65.10 Systemic inflammatory response syndrome (SIRS) of non-infectious origin without acute organ dysfunction; M17.12 Unilateral primary osteoarthritis, left knee; E87.5 Hyperkalemia; E86.0 Dehydration; F03.90 Unspecified dementia, unspecified severity, without behavioral disturbance, psychotic disturbance, mood disturbance, and anxiety; E11.9 Type 2 diabetes mellitus without complications; M10.9 Gout, unspecified; I10 Essential (primary) hypertension; R53.81 Other malaise; F12.90 Cannabis use, unspecified, uncomplicated; Z86.718 Personal history of other venous thrombosis and embolism; Z88.1 Allergy status to other antibiotic agents; Z98.51 Tubal ligation status; Z82.49 Family history of ischemic heart disease and other diseases of the circulatory system
CPT/HCPCS: 36415; 70450; 71045; 71275; 80048; 80053; 80061; 82140; 82962; 83036; 84484; 85025; 85379; 85610; 85652; 85730; 87040; 93005; 93010; 96374; 96375; 99285; G0378; J1170; J1580; J1630; J1815; J1956; J2060; J2270; J2405; J3010; J3370; J3486; J7030; J7040; Q9967